=== PATIENT | female | born 1990 | race Caucasian/White ===

== ENCOUNTER 2020-01-15 07:06 | Inpatient (IN) | payer BC ==
[2020-01-15] MEDS ORDERED: Misoprostol 50 MCG (1/2 of 100 MCG) Tab VAG ONE ×2 (07:30→12:30)
[2020-01-15] MEDS ORDERED: Sodium Chloride 0.9% 10 ML Syringe FLUSH PRN ×2 (08:15→20:58)
[2020-01-15] MEDS ORDERED: ePHEDrine 50 MG/ML SDV IVPUSH PRN ×2 (08:18→20:58)
[2020-01-15] MEDS ORDERED: Lactated Ringers 1,000 ML IV ONE (08:18)
--- NOTE | 2020-01-15 08:26 | PCM.LDHP ---
L&D History of Present Illness - General Date of Service: 01/15/20 (post dates and thrombocytopenia) Admit Problem/Dx: Patient Status Order with Admit Dx/Problem 01/15/20 08:15 Patient Status [ADT] Routine Admission Diagnosis/Problem Admission Diagnosis/Problem Source of Information: Patient History Limitations: Reports: No Limitations - History of Present Illness Introduction:: This 29 year old who is 41 weeks gestation with acquired thrombocytopenia. Dating is accurate and Thrombocytopenia has been treated with steroid times two weeks. Adequate care. JADON 01/08/20 based on LMP and US. Labs Covid neg GBS neg ABO AB pos HIV neg Rubella immune Timing/Duration: Reports: minutes: (8) Location, : Reports: Abdomen Quality: Reports: Dull Severity: Mild Improves with: Reports: None Worsens with: Reports: None - Related Data Allergies/Adverse Reactions: Allergies Allergy/AdvReac Type Severity Reaction Status Date / Time codeine Allergy Hives Verified 01/15/20 07:22 Home Medications: Home Meds Vits #93/Iron Fum/FA [ Formula Tablet] 1 tab PO DAILY 01/15/20 [History] predniSONE [Prednisone] 1 tab PO DAILY 01/15/20 [History] Past Medical History - Past Health History Medical/Surgical History: Denies Medical/Surgical History Cardiovascular History: Reports: None 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, : 1 Para: 0 LMP (Approximate): (JADON 01/08/20) Hematologic History: Reports: Idiopathic Thrombocytopenia Other Hematologic History: acquired thrombocytopenia Immunologic History: Reports: None - Infectious Disease History Infectious Disease History: Reports: Chicken Pox - Past Surgical History Cardiovascular Surgical History: Reports: None Respiratory Surgical History: Reports: None GI Surgical History: Reports: None Female Surgical History: Reports: None Social & Family History - Tobacco Use Tobacco Use Status *Q: Never Tobacco User Second Hand Smoke Exposure: No - Caffeine Use Caffeine Use: Reports: None - Recreational Drug Use Recreational Drug Use: No H&P Review of Systems - Review of Systems: Review Of Systems: See Below General: Reports: No Symptoms HEENT: Reports: No Symptoms Pulmonary: Reports: No Symptoms Cardiovascular: Reports: No Symptoms Gastrointestinal: Reports: No Symptoms Genitourinary: Reports: No Symptoms Musculoskeletal: Reports: No Symptoms Skin: Reports: No Symptoms Psychiatric: Reports: No Symptoms Neurological: Reports: No Symptoms Hematologic/Lymphatic: Reports: No Symptoms Immunologic: Reports: No Symptoms L&D Exam - Exam Exam: See Below - Vital Signs Vital Signs: Last Vital Signs Temp 98.9 F 01/15/20 07:30 Pulse 78 01/15/20 07:30 Resp 18 01/15/20 07:30 BP 120/65 01/15/20 07:30 Pulse Ox 93 L 01/15/20 07:30 Weight: 203 lb 3.2 oz - OB Specific Contraction Duration (sec): 70-100 Contraction Frequency (min): 5-8 Contraction Intensity: Mild Movement: Active Heart Tones: Present Heart Tones per Min: 150 Heart Rate (FHR) Variability: Moderate (6-25 bmp) Presentation: Vertex Estimated Weight: 7-8 pounds - Thomas Score Thomas Score Cervix Position: Midposition Thomas Score Consistency: Soft Thomas Score Effacement: 51-70% Thomas Score Dilation: Closed Thomas Score 's Station: -2 Thomas Score Total: 6 - Exam General: Alert, Oriented HEENT: PERRLA Neck: Supple Lungs: Clear to Auscultation, Normal Respiratory Effort Cardiovascular: Regular Rate, Regular Rhythm GI/Abdominal Exam: Soft, Non-Tender Rectal Exam: Normal Exam Genitourinary: Normal external exam, Enlarged uterus Back Exam: Normal Inspection, Full Range of Motion Extremities: Normal Range of Motion, No Pedal Edema, Normal Capillary Refill Skin: Warm Neurological: Cranial Nerves Intact Psychiatric: Alert, Normal Affect, Normal Mood - Patient Data Lab Results Last 24 hrs: Laboratory Results - last 24 hr 01/15/20 01/15/20 01/15/20 Range/Units 07:14 07:14 07:26 WBC 18.4 H (4.5-11.0) K/uL RBC 4.72 (3.30-5.50) M/uL Hgb 14.1 (12.0-15.0) g/dL Hct 41.7 (36.0-48.0) % MCV 88 (80-98) fL MCH 30 (27-31) pg MCHC 34 (32-36) % Plt Count 204 (150-400) K/uL Neut % (Auto) 74 H (36-66) % Lymph % (Auto) 18 L (24-44) % Elliott % (Auto) 7 H (2-6) % Eos % (Auto) 0 L (2-4) % Baso % (Auto) 0 (0-1) % Urine Color Yellow (YELLOW) Urine Appearance Slightly cloudy A (CLEAR) Urine pH 7.0 (5.0-8.0) Ur Specific [place] 1.025 (1.008-1.030) Urine Protein Negative (NEGATIVE) mg/dL Urine Glucose (UA) Negative (NEGATIVE) mg/dL Urine Ketones Negative (NEGATIVE) mg/dL Urine Occult Blood Negative (NEGATIVE) Urine Nitrite Negative (NEGATIVE) Urine Bilirubin Negative (NEGATIVE) Urine Urobilinogen 0.2 (0.2-1.0) EU/dL Ur Leukocyte Esterase Negative (NEGATIVE) Urine RBC 0-5 (0-5) Urine WBC 0-5 (0-5) Ur Epithelial Cells Many Amorphous Sediment Occasional Urine Bacteria Few Urine Mucus Occasional Urine Opiates Screen Negative (NEGATIVE) Ur Oxycodone Screen Negative (NEGATIVE) Urine Methadone Screen Negative (NEGATIVE) Ur Propoxyphene Screen Negative (NEGATIVE) Ur Barbiturates Screen Negative (NEGATIVE) Ur Tricyclics Screen Negative (NEGATIVE) Ur Phencyclidine Scrn Negative (NEGATIVE) Ur Amphetamine Screen Negative (NEGATIVE) U Methamphetamines Scrn Negative (NEGATIVE) Urine MDMA Screen Negative (NEGATIVE) U Benzodiazepines Scrn Negative (NEGATIVE) U Cocaine Metab Screen Negative (NEGATIVE) U Marijuana (THC) Screen Negative (NEGATIVE) Result Diagrams: 01/15/20 07:26 - Problem List (1) Elective induction of labor planned SNOMED Code(s): 864504964 ICD Code: [id number] - Status: Acute Current Visit: Yes (2) Thrombocytopenia SNOMED Code(s): 971074178 ICD Code: D69.6 - THROMBOCYTOPENIA, UNSPECIFIED Status: Acute Current Visit: Yes (3) SNOMED Code(s): 59463774 ICD Code: Z34.90 - ENCNTR FOR SUPRVSN OF NORMAL , UNSP, UNSP TRIMESTER Status: Acute Current Visit: Yes Qualifiers: Weeks of gestation: 41 weeks Qualified Code(s): Z3A.41 - 41 weeks gestation of Problem List Initiated/Reviewed/Updated: Yes Orders Last 24hrs: Active Orders 24 hr Category Date Time Status Patient Status [ADT] Routine ADT 01/15/20 08:15 Ordered Antiembolic Devices [RC] .Routine Care 01/15/20 08:18 Ordered Communication Order [RC] ASDIRECTED Care 01/15/20 08:15 Ordered Communication Order [RC] ASDIRECTED Care 01/15/20 08:19 Ordered Heart Tones [RC] PER UNIT ROUTINE Care 01/15/20 08:15 Ordered Non Stress Test [RC] Click to Edit Care 01/15/20 08:15 Ordered Insert Urinary Catheter [OM.PC] ASDIRECTED Care 01/15/20 08:30 Ordered Local Anesthetic Infusion Pump [RC] ASDIRECTED Care 01/15/20 08:19 Ordered Notify Provider Vital Signs [RC] PRN Care 01/15/20 08:15 Ordered Notify Provider [RC] PRN Care 01/15/20 08:15 Ordered PCEA Epidural [RC] ASDIRECTED Care 01/15/20 08:19 Ordered PCEA Epidural [RC] ASDIRECTED Care 01/15/20 08:19 Ordered Up ad Miranda [RC] ASDIRECTED Care 01/15/20 08:15 Ordered Urinary Catheter Assessment [RC] ASDIRECTED Care 01/15/20 08:19 Ordered VTE/DVT Education [RC] Click to Edit Care 01/15/20 08:18 Ordered Vital Signs [RC] PER UNIT ROUTINE Care 01/15/20 08:15 Ordered Regular Diet [DIET] Diet 01/15/20 Dinner Ordered Lactated Ringers [Ringers, Lactated] 1,000 ml Med 01/15/20 08:18 Ordered IV .BOLUS Oxytocin/Normal Saline [Pitocin in NS 20 Units/1,000 ML Med 01/15/20 08:19 Ordered ] 20 unit in 1,000 ml IV ONETIME Sodium Chloride 0.9% [Saline Flush] Med 01/15/20 08:15 Ordered 10 ml FLUSH ASDIRECTED PRN ePHEDrine [ePHEDrine sulfate] Med 01/15/20 08:18 Ordered 10 mg IVPUSH ASDIRECTED PRN DVT/VTE Prophylaxis Reflex [OM.PC] Routine Oth 01/15/20 08:15 Ordered Epidural Catheter Management [OM.PC] Urgent Oth 01/15/20 08:19 Ordered Saline Lock Insert [OM.PC] Routine Oth 01/15/20 08:15 Ordered Resuscitation Status Routine Resus Stat 01/15/20 08:15 Ordered Medication Orders Ephedrine Sulfate (Ephedrine Sulfate) 10 mg IVPUSH ASDIRECTED PRN PRN Reason: Hypotension Lactated Ringer's (Ringers, Lactated) 1,000 mls @ 999 mls/hr IV .BOLUS ONE Stop: 01/15/20 09:18 Oxytocin/Sodium Chloride (Pitocin In Ns 20 Units/1,000 Ml) 20 unit in 1,000 mls @ 999 mls/hr IV ONETIME ONE; Protocol Stop: 01/15/20 09:19 Sodium Chloride (Saline Flush) 10 ml FLUSH ASDIRECTED PRN PRN Reason: Keep Vein Open Assessment/Plan Comment:: 01/15/20 41 week IUP with acquired thrombocytopenia Induction today Labs : PLT 204 Covid neg GBS neg HIV neg Rubella immune CE FT/50/-2, Cat one strip, vertex, reactive NST Plan: Miso 50 mcg at 0800 will reassess at noon plan for epidural per her request Maybe up and about after initial monitoring
--- NOTE | 2020-01-15 12:23 | PCM.PNLD ---
Labor Progress Note - VS & Meds Vital Signs: Last Vital Signs Temp 98.9 F 01/15/20 07:30 Pulse 93 01/15/20 10:20 Resp 18 01/15/20 10:20 BP 126/72 01/15/20 10:20 Pulse Ox 93 L 01/15/20 10:20 Active Medications: Current Medications Ephedrine Sulfate (Ephedrine Sulfate) 10 mg IVPUSH ASDIRECTED PRN PRN Reason: Hypotension Oxytocin/Sodium Chloride (Pitocin In Ns 20 Units/1,000 Ml) 20 unit in 1,000 mls @ 999 mls/hr IV ONETIME ONE; Protocol Stop: 01/15/20 13:00 Misoprostol (Cytotec) 50 mcg VAG ONETIME ONE Stop: 01/15/20 12:31 Sodium Chloride (Saline Flush) 10 ml FLUSH ASDIRECTED PRN PRN Reason: Keep Vein Open Discontinued Medications Lactated Ringer's (Ringers, Lactated) 1,000 mls @ 999 mls/hr IV .BOLUS ONE Stop: 01/15/20 09:18 Misoprostol (Cytotec) 50 mcg VAG ONETIME ONE Stop: 01/15/20 07:31 Last Admin: 01/15/20 08:06 Dose: 50 mcg Documented by: - Uterine Contractions Uterine Monitoring Mode: External [place] Contraction Frequency (min): 2-4 Contraction Duration (sec): 50-60 Contraction Intensity: Mild Uterine Resting Tone: Soft - Monitoring Monitor Mode: Doppler/Auscultation Heart Rate (FHR) Variability: Moderate (6-25 bmp) Accelerations: Present, 15x15 Decelerations: None Strip Review: Category I - Vaginal Exam Dilation (cm): 1 Effacement (Percent): 50 Station: 0 Cervical Position: Midposition Sterile Vaginal Exam Performed By: Abida Glover Vaginal Exam Comment: SROM meconium, Bloody show /0 - Labor Progress (Free Text) Labor Progress: back labor, tub Fentanyl and epidural when needed. Plan for vaginal delivery
[2020-01-15] MEDS ORDERED: fentaNYL 100 MCG/2 ML SDV IVPUSH ONE (12:30)
[2020-01-15] MEDS ORDERED: Lactated Ringers 1,000 ML IV SCH (14:30)
[2020-01-15] MEDS ORDERED: Sodium Chloride 0.9% 10 ML SDV IV ONE (20:00)
[2020-01-15] MEDS ORDERED: Sodium Chloride 0.9% 1,000 ML IV ONE (20:20)
[2020-01-15] MEDS ORDERED: diphenhydrAMINE 50 MG/ML SDV IVPUSH PRN ×2 (20:58)
[2020-01-15] MEDS ORDERED: Naloxone 0.4 MG/ML SDV IVPUSH PRN (20:58)
[2020-01-15] MEDS ORDERED: Ropivacaine 200 MG in Premix Bag 1 BAG EPIDUR SCH (21:00)
[2020-01-15] MEDS ORDERED: Ropivacaine 100 ML ONE (21:11)
--- NOTE | 2020-01-15 22:08 | ANES ---
DATE OF SERVICE: 01/15/2020 TIME: 2149. INDICATIONS: I was called to the Labor and Delivery Unit by Abida Glover to evaluate Ms. Alcocer for a labor epidural. This is her first baby. She is approximately 2 cm and they are going to start some Pitocin and would like to have an epidural before that happens. The risks and benefits of the procedure were explained to the patient. She wished to proceed with labor epidural. TECHNIQUE: She was placed in a sitting position. Her back was prepped x3 with Betadine, 1% lidocaine skin local was used. The epidural was placed at L3-4 using a 17-gauge Tuohy needle in loss of resistance technique. The epidural had very good feel throughout, and the epidural space was easily identified. There was negative CSF, negative blood, and negative paresthesias noted. Therefore, a catheter was threaded to 14 cm at the skin. There was negative CSF, negative blood, and negative paresthesias in the catheter as well. A 1.5% lidocaine with epinephrine test dose was given, and this test dose was negative. The catheter was then secured with tape. The patient was placed in a supine position. A 0.2% ropivacaine bolus of 12 mL was given. The bolus had very good relief. Therefore, 0.2% ropivacaine drip was started at 12 mL/h. The patient tolerated the epidural procedure very nicely and her vital signs remained stable throughout the procedure, and nurse was with me for the entire procedure. There were no anesthesia complications noted, and we will continue to monitor throughout her Labor and Delivery stay. Jonathan Lunsford CRNA /[id number]
--- NOTE | 2020-01-15 22:50 | PCM.PNLD ---
Labor Progress Note - VS & Meds Vital Signs: Last Vital Signs Temp 96.7 F L 01/15/20 20:15 Pulse 97 01/15/20 20:15 Resp 18 01/15/20 20:15 BP 129/74 01/15/20 20:15 Pulse Ox 94 L 01/15/20 20:15 Active Medications: Current Medications Ephedrine Sulfate (Ephedrine Sulfate) 10 mg IVPUSH ASDIRECTED PRN PRN Reason: Hypotension Lactated Ringer's (Ringers, Lactated) 1,000 mls @ 100 mls/hr IV ASDIRECTED LINDA Sodium Chloride (Saline Flush) 10 ml FLUSH ASDIRECTED PRN PRN Reason: Keep Vein Open Discontinued Medications Fentanyl (Sublimaze) 100 mcg IVPUSH ONETIME ONE Stop: 01/15/20 12:31 Last Admin: 01/15/20 13:39 Dose: Not Given Documented by: Lactated Ringer's (Ringers, Lactated) 1,000 mls @ 999 mls/hr IV .BOLUS ONE Stop: 01/15/20 09:18 Last Admin: 01/15/20 12:30 Dose: 999 mls/hr Documented by: Oxytocin/Sodium Chloride (Pitocin In Ns 20 Units/1,000 Ml) 20 unit in 1,000 mls @ 999 mls/hr IV ONETIME ONE; Protocol Stop: 01/15/20 13:00 Misoprostol (Cytotec) 50 mcg VAG ONETIME ONE Stop: 01/15/20 07:31 Last Admin: 01/15/20 08:06 Dose: 50 mcg Documented by: Misoprostol (Cytotec) 50 mcg VAG ONETIME ONE Stop: 01/15/20 12:31 Last Admin: 01/15/20 13:39 Dose: Not Given Documented by: - Uterine Contractions Uterine Monitoring Mode: External [place] Contraction Frequency (min): 2-4 Contraction Duration (sec): 80-100 Contraction Intensity: Moderate to Strong Uterine Resting Tone: Soft - Monitoring Monitor Mode: Doppler/Auscultation Heart Rate (FHR) Variability: Moderate (6-25 bmp) Accelerations: Present, 15x15 Decelerations: None Strip Review: Category I - Vaginal Exam Dilation (cm): 2 Effacement (Percent): 80 Station: 0 Cervical Position: Midposition Sterile Vaginal Exam Performed By: Abida Glover Vaginal Exam Comment: bloody show, nice effacement - Labor Progress (Free Text) Labor Progress: contractions are spacing out every 3-6 minutes. FHT 150 cat one strip Plan: epidural pitocin augmentation
[2020-01-16] MEDS ORDERED: Sodium Chloride 0.9% 500 ML IV ONE (00:45)
[2020-01-16] MEDS ORDERED: Oxytocin 10 Units/1 ML SDV ONE ×2 (06:04→07:08)
[2020-01-16] MEDS ORDERED: cefOXitin 1 GM Vial ONE (06:05)
[2020-01-16] MEDS ORDERED: cefOXitin 2 GM Vial ONE ×2 (06:05→07:49)
[2020-01-16] MEDS ORDERED: Ondansetron 4 MG/2 ML SDV ONE (07:05)
[2020-01-16] MEDS ORDERED: Phenylephrine 1% 10 MG/ML SDV ONE (07:05)
[2020-01-16] MEDS ORDERED: Bupivacaine 0.5% 30 ML SDV ONE (07:06)
[2020-01-16] MEDS ORDERED: ePHEDrine 50 MG/ML SDV ONE (07:06)
[2020-01-16] MEDS ORDERED: Sodium Chloride 0.9% 20 ML ONE (07:06)
[2020-01-16] MEDS ORDERED: Dexamethasone 4 MG/ML SDV ONE (07:27)
[2020-01-16] MEDS ORDERED: Lactated Ringers 1,000 ML ONE (07:39)
[2020-01-16] MEDS ORDERED: Sodium Chloride 0.9% 10 ML ONE (07:49)
[2020-01-16] MEDS ORDERED: Morphine PF 10 MG/10 ML SDV ONE ×2 (07:59→19:55)
[2020-01-16] MEDS ORDERED: fentaNYL 100 MCG/2 ML SDV ONE (08:00)
[2020-01-16] MEDS ORDERED: Ondansetron 4 MG/2 ML SDV IVPUSH PRN (09:24)
[2020-01-16] MEDS: hydrOXYzine HCL 100 MG/2 ML SDV IM PRN ×2 (09:44→14:51)
[2020-01-16] MEDS: Acetaminophen 500 MG Tab PO SCH ×3 (09:46→22:02)
[2020-01-16] MEDS: Ibuprofen 600 MG Tab PO SCH ×2 (12:19→18:18)
[2020-01-16] MEDS: cefOXitin 2 GM in Sodium Chloride 0.9% 50 ML IV SCH ×2 (13:46→21:14)
[2020-01-16] MEDS: Dextrose 5%-Lactated Ringers 1,000 ML IV SCH ×2 (13:47→21:32)
[2020-01-17] MEDS: Ibuprofen 600 MG Tab PO SCH ×4 (01:39→18:10)
[2020-01-17] MEDS: cefOXitin 2 GM in Sodium Chloride 0.9% 50 ML IV SCH ×4 (03:00→20:00)
[2020-01-17] MEDS: Acetaminophen 500 MG Tab PO SCH ×4 (06:02→21:09)
[2020-01-17] MEDS ORDERED: oxyCODONE 5 MG Tab PO PRN (07:39)
[2020-01-17] MEDS ORDERED: Lanolin 100% Cream 40 GM Tube TOP PRN (08:03)
[2020-01-17] MEDS ORDERED: Acetaminophen 325 MG Tab, 50 Tab Bulk Bottle PO PRN (08:03)
[2020-01-17] MEDS ORDERED: Witch Hazel Medicated Pads 100/Jar TOP PRN (08:03)
[2020-01-17] MEDS: Bisacodyl 5 MG Tab PO SCH ×2 (09:06→21:09)
[2020-01-17] MEDS: Docusate Sodium 100 MG Cap PO SCH ×2 (09:06→21:09)
--- NOTE | 2020-01-17 10:28 | PN ---
DATE OF SERVICE: 01/17/2020 SUBJECTIVE: Abbie is a 29-year-old female who had a yesterday. Hemoglobin this morning is 11.9. She continues to have her epidural in. Vital signs have been stable. Oral intake 1740. Urine output via Silverio catheter is 5200. Remainder of review of systems negative for any pertinent positives and negatives. OBJECTIVE: GENERAL: Abbie Alcocer is a pleasant 29-year-old female. She is alert and orientated. VITAL SIGNS: TPR; 97, 67, 18. Blood pressure 118/63. HEENT: Negative. NECK: Supple. HEART: Regular rate and rhythm. LUNGS: Clear. ABDOMEN: Abdominal binder is on. Incision is glued. EXTREMITIES: Without peripheral edema. ASSESSMENT: section. Date of procedure 01/16/2020. PLAN: 1. Discontinue epidural without loading dose. 2. Discontinue Silverio mid a.m. 3. Regular diet. 4. Shower. 5. Oxycodone 5 mg every 4 hours p.r.n. pain. 6. Saline lock IV. 7. Colace 100 mg b.i.d. 8. Dulcolax tablets 10 mg b.i.d. May stop after bowel movement. 9. Continue use of incentive spirometer. 10.We will evaluate p.r.n. or in a.m. Sharon Mclean PA-C /[id number]
[2020-01-18] MEDS: Acetaminophen 500 MG Tab PO SCH (04:42)
[2020-01-18] MEDS: Ibuprofen 600 MG Tab PO SCH ×2 (04:42→06:23)
[2020-01-18] MEDS ORDERED: Ibuprofen 200 MG Tab, 24 Tab Bulk Bottle PO PRN (08:03)
[2020-01-18] MEDS: Bisacodyl 5 MG Tab PO SCH (11:19)
[2020-01-18] MEDS: Docusate Sodium 100 MG Cap PO SCH (11:19)
--- NOTE | 2020-01-18 13:00 | DISCH ---
ADMISSION DIAGNOSES: 1. Term . 2. Prolonged spontaneous rupture of membranes. 3. Failure to progress in labor. 4. Thrombocytopenia. DISCHARGE DIAGNOSES: section, date of procedure 01/16/2020. Surgeon: Jarvis Greer MD. Delivery of viable female infant. HISTORY: Abbie Alcocer is a pleasant 29-year-old female who had spontaneous rupture of membranes and failure to progress. After preoperative evaluation and discussion of possible risks and possible complications, she wished to proceed with surgical procedure. HOSPITAL COURSE: Abbie was admitted on 01/15/2020. Her labor did not progress. She had a section on 01/16/2020. She had no operative complications. On postoperative day 1, epidural was discontinued, started on regular diet, bowel stimulation, and oral pain medication. On 01/18/2020, she was able to be discharged to home. Pain managed with Tylenol and Motrin. Activity, good; vital signs stable; and there were no complications. PHYSICAL EXAMINATION: GENERAL: Abbie Alcocer is a 29-year-old female, alert and orientated. VITAL SIGNS: Height is 5 feet 5 inches. Weight is 203 pounds. TPR 96.2, 74, 18, blood pressure 142/79. HEENT: Negative. NECK: Supple. HEART: Regular rate and rhythm. LUNGS: Clear. ABDOMEN: Soft, nontender. section is glued. Incision looks good. EXTREMITIES: Without peripheral edema. DISPOSITION: Discharged to home. CONDITION: Stable and improving. FOLLOWUP: 1. Appointment with Sharon Mclean PA-C, on 01/24/2020 at 10 a.m. 2. Follow up with Abida Glover CNM, primary care provider, 02/29/2020 at 11 a.m. MEDICATIONS: Ibuprofen 600 mg p.o. q.6 hours, #40; Tylenol 650 q.6 hours p.r.n. pain; and continue vitamins. DIET: Usual diet as tolerated. Drink 8 to 10 glasses of water a day. ACTIVITY: No lifting over 10 pounds for 6 weeks, but may lift baby in car seat. SHOWER/BATHING: May shower. No tub bathing or swimming for 6 weeks. WOUND INCISION CARE: Keep site clean and dry. Wear abdominal binder for 2 weeks and as tolerated. Notify provider if any fever, increased pain, swelling, redness, drainage, nausea, or vomiting. SPECIAL INSTRUCTION: Use incentive spirometer 10 times every hour while awake for 1 week. /[id number]
--- NOTE | 2020-01-20 11:38 | OR ---
DATE OF PROCEDURE: 01/16/2020 SURGEON: Jarvis Greer MD PREOPERATIVE DIAGNOSIS: Term with failure to progress. POSTOPERATIVE DIAGNOSIS: Term with failure to progress. OPERATIVE PROCEDURE: section (63488). ANESTHESIA: Spinal. MUSIC SOUND LIGHT TECHNICIAN: Christine Ortiz CNM INDICATIONS FOR PROCEDURE: This is a 29-year-old female presenting with term . Over a period of time, she has failed to , and at this point, the plan is proceed with a section. Potential risks of the procedure were reviewed with the patient including bleeding, infection, injury to mother and/or baby, and she wishes to proceed. DETAILS OF PROCEDURE: The patient was taken to the operating room, and after spinal anesthetic was placed, she was positioned with a roll underneath the right hip, a Silverio catheter was inserted, and the abdomen prepped and draped. A transverse Pfannenstiel-type incision was made and carried down through the skin and subcutaneous tissue and through the rectus sheath. Subrectus sheath flaps were then raised superiorly and inferiorly, and the midline fascia was then divided. Peritoneal reflection of the bladder onto the uterus was divided and the bladder reflected downward. A transverse uterine incision was made, and a viable female was then delivered. The position of the baby was occiput posterior, likely resulting in failure to progress. Cord was clamped and cut, and routine care given off the field per Christine Ortiz CNM. The patient was given IV and intrauterine oxytocin and IV cefoxitin. Good uterine contractions were noted, and the placenta and membranes were then delivered without difficulty. The uterus contracted well and was closed with 2 layers of 2-0 Vicryl stitch, which was also used to reapproximate the urinary bladder and peritoneum over the uterine incision. At that point, the midline peritoneum and musculature were approximated with a #2 Vicryl stitch as was the anterior rectus sheath. Subcutaneous tissue was approximated with some 3-0 Vicryl and the skin with a 4-0 Vicryl subcuticular stitch and surgical glue applied. The patient was taken to the recovery room in satisfactory condition. There were no evident complications. Per ACOG guidelines, Christine Ortiz CNM, assisted in this case. Jarvis Greer MD /[id number]
== END 2020-01-18 10:40 | disposition home or self-care (01) | DRG 540 ==
LOC: JP.OB 07:06 → OBSVTOIN 01-16 07:46 → JP.MS 01-16 09:00
PROVIDERS: ADMIT Surgery; ATTEND Surgery
PROC: 10D00Z1 Extraction of Products of Conception, Low, Open Approach (ICD-10-PCS; principal; 2020-01-16)
PROC: 4A1HXCZ Monitoring of Products of Conception, Cardiac Rate, External Approach (ICD-10-PCS; 2020-01-16)
DX: O48.0 Post-term pregnancy (principal); Z3A.41 41 weeks gestation of pregnancy; Z37.0 Single live birth; O99.12 Other diseases of the blood and blood-forming organs and certain disorders involving the immune mechanism complicating childbirth; Z88.5 Allergy status to narcotic agent; Z79.52 Long term (current) use of systemic steroids; D69.3 Immune thrombocytopenic purpura; Z20.828 Contact with and (suspected) exposure to other viral communicable diseases
CPT/HCPCS: 36415; 51702; 59409; 80305-QW; 81001; 85025; 85027; 86850; 86900; 86901; 88307; 94762; 99211; A9270-GY; J0694; J1100; J2270; J2370; J2405; J2590; J2795; J3010; J3410; J3490; J7030; J7050; J7120; J7121